=== PATIENT | female | born 1950 | race Caucasian/White ===

== ENCOUNTER → 2016-09-11 | Outpatient (CLI) | payer BC ==
[~2016-09-11] VITALS: Ht 162.6 cm; Wt 88.0 kg
[~2016-09-11] MED LIST: EFFEXOR-XR150 MG PO; FASTIN30 MG PO; HCTZ12.5TAB PO; MULTIPLE VITAMI1 TAB PO; PHENTERMINE15 MG; TOPAMAX 25MG25 M1 PO; TOPAMAX50 MG PO; ZETIA 10MG TAB10 MG PO; [UNRECOGNIZED DRUG - OTHER]
[2016-09-11 11:22] VITALS: BP 144/78; PULSE 78
[2016-09-11 11:48] VITALS: BP 144/78; PULSE 78
== END ==
LOC: LIGHT 11:20
DX: E88.81 Metabolic syndrome and other insulin resistance (principal); E78.4 Other hyperlipidemia; E66.09 Other obesity due to excess calories; Z68.33 Body mass index [BMI] 33.0-33.9, adult

== ENCOUNTER → 2016-10-23 | Outpatient (CLI) | payer BC ==
[~2016-10-23] VITALS: Ht 162.6 cm; Wt 88.2 kg
[2016-10-23 11:11] VITALS: BP 137/81; PULSE 73
[2016-10-23 11:41] VITALS: BP 137/81; PULSE 73
[2016-10-23 11:51] VITALS: BP 137/81; PULSE 73
== END ==
LOC: LIGHT 11:10
DX: E88.81 Metabolic syndrome and other insulin resistance (principal); E78.4 Other hyperlipidemia; R73.01 Impaired fasting glucose; E66.09 Other obesity due to excess calories; Z68.33 Body mass index [BMI] 33.0-33.9, adult

== ENCOUNTER → 2016-11-27 | Outpatient (CLI) | payer BC ==
[~2016-11-27] VITALS: Ht 162.6 cm; Wt 86.4 kg
[2016-11-27 11:28] VITALS: BP 134/79; PULSE 83
== END ==
LOC: LIGHT 11:25
DX: E88.81 Metabolic syndrome and other insulin resistance (principal); E78.4 Other hyperlipidemia; E66.8 Other obesity; Z68.32 Body mass index [BMI] 32.0-32.9, adult

== ENCOUNTER → 2017-01-22 | Outpatient (CLI) | payer BC ==
[~2017-01-22] VITALS: Ht 162.6 cm; Wt 86.9 kg
[2017-01-22 11:16] VITALS: BP 141/79; PULSE 76
== END ==
LOC: LIGHT 12-25 12:13
DX: E88.81 Metabolic syndrome and other insulin resistance (principal); E78.5 Hyperlipidemia, unspecified; E66.9 Obesity, unspecified; Z68.32 Body mass index [BMI] 32.0-32.9, adult; Z71.3 Dietary counseling and surveillance

== ENCOUNTER → 2017-02-19 | Outpatient (CLI) | payer BC ==
[~2017-02-19] VITALS: Ht 162.6 cm; Wt 86.6 kg
[2017-02-19 11:16] VITALS: BP 135/70; PULSE 73
== END ==
LOC: LIGHT 11:10
DX: E88.81 Metabolic syndrome and other insulin resistance (principal); E78.5 Hyperlipidemia, unspecified; E66.9 Obesity, unspecified; Z68.32 Body mass index [BMI] 32.0-32.9, adult; Z71.3 Dietary counseling and surveillance

== ENCOUNTER → 2017-03-19 | Outpatient (CLI) | payer BC ==
[~2017-03-19] VITALS: Ht 162.6 cm; Wt 85.3 kg
[2017-03-19 11:11] VITALS: BP 130/60; PULSE 76
== END ==
LOC: LIGHT 11:05
DX: E88.81 Metabolic syndrome and other insulin resistance (principal); E78.5 Hyperlipidemia, unspecified; E66.9 Obesity, unspecified; Z68.32 Body mass index [BMI] 32.0-32.9, adult; Z71.3 Dietary counseling and surveillance

== ENCOUNTER → 2017-04-23 | Outpatient (CLI) | payer BC ==
[~2017-04-23] VITALS: Ht 162.6 cm; Wt 84.1 kg
[2017-04-23 09:14] VITALS: BP 134/80; PULSE 76
== END ==
LOC: LIGHT 08:53
DX: E88.81 Metabolic syndrome and other insulin resistance (principal); E78.5 Hyperlipidemia, unspecified; E66.9 Obesity, unspecified; Z68.31 Body mass index [BMI] 31.0-31.9, adult

== ENCOUNTER → 2017-06-04 | Outpatient (CLI) | payer BC ==
[~2017-06-04] VITALS: Ht 162.6 cm; Wt 86.2 kg
[2017-06-04 11:57] VITALS: BP 120/80; PULSE 76
== END ==
LOC: LIGHT 12:01
DX: E88.81 Metabolic syndrome and other insulin resistance (principal); E78.5 Hyperlipidemia, unspecified; E66.9 Obesity, unspecified; Z68.32 Body mass index [BMI] 32.0-32.9, adult; Z71.3 Dietary counseling and surveillance

== ENCOUNTER → 2017-07-02 | Outpatient (CLI) | payer BC | LOC: MC.RAD 15:17 | DX: Z12.31 Encounter for screening mammogram for malignant neoplasm of breast (principal) ==

== ENCOUNTER → 2017-07-02 | Outpatient (CLI) | payer BC ==
[~2017-07-02] VITALS: Ht 162.6 cm; Wt 86.4 kg
[2017-07-02 11:07] VITALS: BP 124/70; PULSE 80
== END ==
LOC: LIGHT 10:57
DX: E88.81 Metabolic syndrome and other insulin resistance (principal); E78.5 Hyperlipidemia, unspecified; E66.9 Obesity, unspecified; Z68.32 Body mass index [BMI] 32.0-32.9, adult; Z71.3 Dietary counseling and surveillance

== ENCOUNTER → 2017-08-13 | Outpatient (CLI) | payer MEDICARE ==
[~2017-08-13] VITALS: Ht 162.6 cm; Wt 88.5 kg
[2017-08-13 10:51] VITALS: BP 124/68; PULSE 84
== END ==
LOC: LIGHT 10:37
DX: E88.81 Metabolic syndrome and other insulin resistance (principal); E78.5 Hyperlipidemia, unspecified; E66.9 Obesity, unspecified; Z68.33 Body mass index [BMI] 33.0-33.9, adult; Z71.3 Dietary counseling and surveillance

== ENCOUNTER → 2018-09-06 | Outpatient (CLI) | payer OTHER, MEDICARE | LOC: MC.RAD 07:00 | DX: Z12.31 Encounter for screening mammogram for malignant neoplasm of breast (principal); Z98.82 Breast implant status ==